=== PATIENT | female | born 1970 | race Caucasian/White ===

== ENCOUNTER 2021-05-30 09:25 | Outpatient (CLI) | payer OTHER | END 2021-05-30 09:26 | disposition home or self-care (01) | LOC: BICRAD 09:25 | PROVIDERS: ATTEND Nurse Practitioner Family | DX: M54.2 Cervicalgia (principal); M54.50 Low back pain, unspecified; M47.812 Spondylosis without myelopathy or radiculopathy, cervical region; M43.16 Spondylolisthesis, lumbar region; M47.816 Spondylosis without myelopathy or radiculopathy, lumbar region | CPT/HCPCS: 72050; 72110 ==

== ENCOUNTER 2024-09-14 10:12 | Day surgery (SDC) | payer OTHER ==
[2024-09-14] MEDS ORDERED: Lidocaine 2% PF 5 ML VIAL ONE (11:47)
[2024-09-14] MEDS ORDERED: Rocuronium Bromide 10 MG/ML (10ML VIAL) ONE (11:47)
[2024-09-14] MEDS ORDERED: PROPOFOL 20 ML ONE (11:47)
[2024-09-14] MEDS ORDERED: Sodium Chloride 0.9% 100 ML ONE (12:11)
[2024-09-14] MEDS ORDERED: cefTRIAXone (ROCEPHIN) 1 GM VIAL ONE (12:11)
[2024-09-14] MEDS ORDERED: Iopamidol 15 ML ONE (12:12)
[2024-09-14] MEDS ORDERED: fentaNYL PF 100 MCG/2 ML SYRINGE ONE (12:13)
[2024-09-14] MEDS ORDERED: Midazolam HCl 2 mg/2 ml Vial ONE (12:14)
[2024-09-14] MEDS ORDERED: Ondansetron PF 4 MG/2 ML Vial ONE (13:15)
[2024-09-14] MEDS ORDERED: Dexamethasone 4 mg/ml Vial ONE (13:15)
[2024-09-14] MEDS ORDERED: SUGAMMADEX SODIUM 200 MG/2 ML VIAL ONE (13:20)
[2024-09-14] MEDS ORDERED: Phenazopyridine HCl 100 MG TAB ONE (14:52)
[2024-09-14] MEDS ORDERED: Oxybutynin 5 MG TAB ONE (14:53)
== END 2024-09-14 16:10 | disposition home or self-care (01) ==
LOC: SDC 10:12
PROVIDERS: ATTEND Urology
PROC: 0TC18ZZ Extirpation of Matter from Left Kidney, Via Natural or Artificial Opening Endoscopic (ICD-10-PCS; principal; 2024-09-14)
PROC: 0T778DZ Dilation of Left Ureter with Intraluminal Device, Via Natural or Artificial Opening Endoscopic (ICD-10-PCS; principal; 2024-09-14)
DX: N20.2 Calculus of kidney with calculus of ureter (principal); Z79.1 Long term (current) use of non-steroidal anti-inflammatories (NSAID); Z79.899 Other long term (current) drug therapy
CPT/HCPCS: 74176; 74420; 80053; 81001; 82365; 85025; 87086; 88300; J0696; J1100; J1885; J2250; J2270; J2405; J2704; Q9967